=== PATIENT | male | born 1955 | race Caucasian/White ===

== ENCOUNTER 2016-06-19 09:13 | Emergency (ER) | payer MEDICARE, BC ==
[2016-06-19] MEDS ORDERED: Albuterol/Ipratropium 3.0-0.5 MG/3 ML Neb Soln NEB ONE (09:44)
--- NOTE | 2016-06-19 09:54 | EDM.PDOC ---
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 Last pat scan -3 m ago0- showed "spots" on his spine and brain. He received 2 x oral chemoTx. Both had to be stopped because of the side effects of the meds. He is currently o RAD Tx, which was started 1 month go to [facility]. Pt noticed dry cough and sob in the past few days. No F/C/N/V and diarrhea or other constitutional symptoms. Symptom Onset Date: 06/17/16 Symptom Onset Time: 07:00 Timing/Duration: Reports: Intermittent Severity: mild Location, General: Reports: chest Improves with: Reports: None Worsens with: Reports: None Associated Symptoms: Reports: cough - Related Data Allergies/ADRs: Allergies Allergy/AdvReac Type Severity Reaction Status Date / Time No Known Allergies Allergy Verified 06/19/16 09:32 Home Meds: Home Meds Albuterol [Proventil Neb Soln] 2.5 mg .XX Q4HR PRN #1 box 06/19/16 [Rx] Dexamethasone 2 mg PO DAILY 06/19/16 [History] LORazepam 2 mg PO DAILY PRN 06/19/16 [History] Past Medical History - Past Health History Medical/Surgical History: Denies Medical/Surgical History Other Respiratory History: stage 4 lung cancer Social & Family History - Tobacco Use Smoking Status *Q: Former Smoker Second Hand Smoke Exposure: No - Alcohol Use Days Per Week of Alcohol Use: 2 Number of Drinks Per Day: 2 Total Drinks Per Week: 4 - Recreational Drug Use Recreational Drug Use: No Drug Use in Last 12 Months: No ED ROS GENERAL - Review of Systems Review Of Systems: See Below Constitutional: Reports: no symptoms HEENT: Reports: No symptoms Respiratory: Reports: Cough Cardiovascular: Reports: No symptoms Endocrine: Reports: no symptoms GI/Abdominal: Reports: No symptoms : Reports: no symptoms Musculoskeletal: Reports: no symptoms Skin: Reports: erythema (due to radiation) Neurological: Reports: No Symptoms Psychiatric: Reports: No symptoms Hematologic/Lymphatic: Reports: no symptoms Immunologic: Reports: other (non small cell CA, on RAD Tx) ED EXAM, GENERAL - Physical Exam Exam: See Below Exam Limited By: Other (poor historian) General Appearance: thin Eye Exam: bilateral eye: abnormal EOM Ears: normal external exam Ear Exam: bilateral ear: auricle normal Nose: normal inspection, normal mucosa, no blood Throat/Mouth: Normal inspection, Normal lips, Normal teeth, Normal gums, Normal oropharynx, Normal voice, No airway compromise Head: atraumatic, normocephalic Neck: normal inspection, supple, non-tender, full range of motion Respiratory/Chest: rhonchi Cardiovascular: normal peripheral pulses, regular rate, rhythm, no edema, no JVD , no murmur, no rub Peripheral Pulses: 3+: femoral (L), femoral (R) GI/Abdominal: normal bowel sounds, soft, non tender, no organomegaly, no distention, no abnormal bruit, no mass (Male) Exam: Deferred Rectal (Males) Exam: Deferred Back Exam: normal inspection, full range of motion Extremities: normal inspection, normal range of motion, non-tender, no pedal edema, normal capillary refill Neurological: alert, oriented, CN II-XII intact, normal cognition Course - Vital Signs Text/Narrative:: 61 years old w m with history of Non small cell CA, 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 Last pat scan -3 m ago0- showed "spots" on his spine and brain. He received 2 x oral chemoTx. Both had to be stopped because of the side effects of the meds. He is currently o RAD Tx, which was started 1 month go to [facility] c spine and brain meds. Pt noticed dry cough and sob in the past few days. No F/C/N/V and diarrhea or other constitutional symptoms. PE: Thin, not cachectic WM, NAD, gen rhonchi CXR: Atelectasis RML, Discussed with Dr. Hughes, who compared CT of chest with current CXR Labs: Microcytic hematuria. Impression: H/O Non smal Cell CA of lung with meds to spinal cord and brain. Microcytic Hematuria. Atelectasis RML of lung. Tx; Duoneb Reexam: Improved Plan: D/C with instructions. Last Recorded V/S: Last Vital Signs Temp 36.3 C 06/19/16 09:14 Pulse 88 06/19/16 10:02 Resp 20 06/19/16 11:20 BP 137/89 06/19/16 11:20 Pulse Ox 98 06/19/16 11:20 - Orders/Labs/Meds Labs: Laboratory Tests 06/19/16 06/19/16 06/19/16 Range/Units 09:55 09:55 09:55 WBC 8.6 (4.5-12.0) X10-3/uL RBC 5.59 (4.30-5.75) x10(6)uL Hgb 15.9 H D (11.5-15.5) g/dL Hct 49.7 (30.0-51.3) % MCV 89.0 (80-96) fL MCH 28.5 (27.7-33.6) pg MCHC 32.0 L (32.2-35.4) g/dL RDW 14.6 (11.5-15.5) % Plt Count 131 (125-369) X10(3)uL MPV 7.5 (7.4-10.4) fL Add Manual Diff Yes Neutrophils % (Manual) 74 (46-82) % Lymphocytes % (Manual) 18 (13-37) % Monocytes % (Manual) 7 (4-12) % Eosinophils % (Manual) 1 (0-5) % PT 10.3 (8.7-11.1) INR 1.02 (0.89-1.13) Sodium 134 L (135-145) mmol/L Potassium 3.8 D (3.5-5.3) mmol/L Chloride 101 (100-110) mmol/L Carbon Dioxide 27 (23-29) mmol/L BUN 17 (8-23) mg/dL Creatinine 1.2 (0.6-1.3) mg/dL Est Cr Clr Drug Dosing 65.46 mL/min Estimated GFR (MDRD) > 60 (>60) BUN/Creatinine Ratio 14.2 (9-20) Glucose 90 (80-116) mg/dL Lactic Acid (0.5-2.2) mmol/L Calcium 8.4 L (8.6-10.2) mg/dL Total Bilirubin (0.1-1.3) mg/dL Direct Bilirubin (0.1-0.2) mg/dL AST (5-27) IU/L ALT (14-26) IU/L Alkaline Phosphatase (56-112) IU/L B-Natriuretic Peptide (0-100) pg/mL Total Protein (6.0-8.0) g/dL Albumin (3.2-4.6) g/dL Urine Color (YELLOW) Urine Appearance (CLEAR) Urine pH (5.0-6.5) Ur Specific Jay (1.010-1.025) Urine Protein (NEGATIVE) mg/dL Urine Glucose (UA) (NEGATIVE) mg/dL Urine Ketones (NEGATIVE) mg/dL Urine Occult Blood (NEGATIVE) Urine Nitrite (NEGATIVE) Urine Bilirubin (NEGATIVE) Urine Urobilinogen (NEGATIVE) mg/dL Ur Leukocyte Esterase (NEGATIVE) Urine RBC (0) Urine WBC (0) Ur Squamous Epith Cells (NS,R,O) Urine Bacteria (NS) 06/19/16 06/19/16 06/19/16 Range/Units 09:55 09:55 09:55 WBC (4.5-12.0) X10-3/uL RBC (4.30-5.75) x10(6)uL Hgb (11.5-15.5) g/dL Hct (30.0-51.3) % MCV (80-96) fL MCH (27.7-33.6) pg MCHC (32.2-35.4) g/dL RDW (11.5-15.5) % Plt Count (125-369) X10(3)uL MPV (7.4-10.4) fL Add Manual Diff Neutrophils % (Manual) (46-82) % Lymphocytes % (Manual) (13-37) % Monocytes % (Manual) (4-12) % Eosinophils % (Manual) (0-5) % PT (8.7-11.1) INR (0.89-1.13) Sodium (135-145) mmol/L Potassium (3.5-5.3) mmol/L Chloride (100-110) mmol/L Carbon Dioxide (23-29) mmol/L BUN (8-23) mg/dL Creatinine (0.6-1.3) mg/dL Est Cr Clr Drug Dosing mL/min Estimated GFR (MDRD) (>60) BUN/Creatinine Ratio (9-20) Glucose (80-116) mg/dL Lactic Acid 0.8 (0.5-2.2) mmol/L Calcium (8.6-10.2) mg/dL Total Bilirubin 1.0 (0.1-1.3) mg/dL Direct Bilirubin 0.1 (0.1-0.2) mg/dL AST 17 D (5-27) IU/L ALT 16 D (14-26) IU/L Alkaline Phosphatase 84 (56-112) IU/L B-Natriuretic Peptide 9 (0-100) pg/mL Total Protein 6.5 (6.0-8.0) g/dL Albumin 3.6 (3.2-4.6) g/dL Urine Color (YELLOW) Urine Appearance (CLEAR) Urine pH (5.0-6.5) Ur Specific Jay (1.010-1.025) Urine Protein (NEGATIVE) mg/dL Urine Glucose (UA) (NEGATIVE) mg/dL Urine Ketones (NEGATIVE) mg/dL Urine Occult Blood (NEGATIVE) Urine Nitrite (NEGATIVE) Urine Bilirubin (NEGATIVE) Urine Urobilinogen (NEGATIVE) mg/dL Ur Leukocyte Esterase (NEGATIVE) Urine RBC (0) Urine WBC (0) Ur Squamous Epith Cells (NS,R,O) Urine Bacteria (NS) 06/19/16 Range/Units 10:40 WBC (4.5-12.0) X10-3/uL RBC (4.30-5.75) x10(6)uL Hgb (11.5-15.5) g/dL Hct (30.0-51.3) % MCV (80-96) fL MCH (27.7-33.6) pg MCHC (32.2-35.4) g/dL RDW (11.5-15.5) % Plt Count (125-369) X10(3)uL MPV (7.4-10.4) fL Add Manual Diff Neutrophils % (Manual) (46-82) % Lymphocytes % (Manual) (13-37) % Monocytes % (Manual) (4-12) % Eosinophils % (Manual) (0-5) % PT (8.7-11.1) INR (0.89-1.13) Sodium (135-145) mmol/L Potassium (3.5-5.3) mmol/L Chloride (100-110) mmol/L Carbon Dioxide (23-29) mmol/L BUN (8-23) mg/dL Creatinine (0.6-1.3) mg/dL Est Cr Clr Drug Dosing mL/min Estimated GFR (MDRD) (>60) BUN/Creatinine Ratio (9-20) Glucose (80-116) mg/dL Lactic Acid (0.5-2.2) mmol/L Calcium (8.6-10.2) mg/dL Total Bilirubin (0.1-1.3) mg/dL Direct Bilirubin (0.1-0.2) mg/dL AST (5-27) IU/L ALT (14-26) IU/L Alkaline Phosphatase (56-112) IU/L B-Natriuretic Peptide (0-100) pg/mL Total Protein (6.0-8.0) g/dL Albumin (3.2-4.6) g/dL Urine Color Yellow (YELLOW) Urine Appearance Slightly cloudy (CLEAR) Urine pH 5.0 (5.0-6.5) Ur Specific Jay 1.025 (1.010-1.025) Urine Protein Negative (NEGATIVE) mg/dL Urine Glucose (UA) Normal (NEGATIVE) mg/dL Urine Ketones Negative (NEGATIVE) mg/dL Urine Occult Blood Large H (NEGATIVE) Urine Nitrite Negative (NEGATIVE) Urine Bilirubin Small H (NEGATIVE) Urine Urobilinogen 1 H (NEGATIVE) mg/dL Ur Leukocyte Esterase Negative (NEGATIVE) Urine RBC 5-10 (0) Urine WBC 0-5 (0) Ur Squamous Epith Cells Few H (NS,R,O) Urine Bacteria Few H (NS) Meds: Medications Discontinued Medications Generic Name Dose Route Start Last Admin Trade Name Freq PRN Reason Stop Dose Admin Albuterol/Ipratropium 3 ml 06/19/16 09:44 06/19/16 09:50 Duoneb 3.0-0.5 Mg/3 Ml NEB 06/19/16 09:45 3 ml ONETIME ONE Administration Departure - Departure Time of Disposition: 11:19 Disposition: Home, Self-Care 01 Condition: good Clinical Impression: Atelectasis of right lung, Non-small cell cancer of right lung, Microscopic hematuria Prescriptions: Albuterol [Proventil Neb Soln] 2.5 mg .XX Q4HR PRN #1 box PRN Reason: for SOB and cough Instructions: Shortness of Breath Referrals: Quentin Preston MD [Primary Care Provider] - Forms: ED Department Discharge Additional Instructions: Please cont to use your albuterol inhalers every 6 hours as needed for cough and SOB. Please follow up with your PMD to repeat the urine analysis in 3 days. Please come back to the ed if your symptoms get worse acutely.
[2016-06-19 11:46] VITALS: BP 137/89
--- NOTE | 2016-06-19 11:47 | CR ---
INDICATION: Short of breath, history of non-small cell CA. CHEST: PA and lateral views of the chest 06/19/2016 were compared with 2012 CT scan of 04/23/2016. There is again noted atelectasis of a segment posterior basilar medial of the right lower lobe. A small right pleural effusion is also again seen. The effusion may be slightly less than on the previous study. No other active infiltrate or effusion was identified. The heart did not appear enlarged. Bony structures appear to be grossly intact. The aorta is slightly tortuous. The right lung and pleural space were unremarkable. IMPRESSION: Atelectasis and pleural effusion at the right lung base, similar to the previous CT scan of 04/23/2016. No new acute process suggested. Report was called to Dr. Avila at 1107 hours, 06/19/2016. ANGELIQUE
== END 2016-06-19 11:35 | disposition home or self-care (01) ==
LOC: FB.ED 09:13
DX: J98.11 Atelectasis (principal); C34.91 Malignant neoplasm of unspecified part of right bronchus or lung; R31.29 Other microscopic hematuria; Z87.891 Personal history of nicotine dependence; R06.02 Shortness of breath; R05 Cough; Z79.899 Other long term (current) drug therapy; C79.31 Secondary malignant neoplasm of brain; C79.51 Secondary malignant neoplasm of bone
CPT/HCPCS: 36415; 71020; 80048; 80076; 81001; 83605; 83880; 85025; 85610; 94640; 94664; 99284; J7620